=== PATIENT | female | born 1995 | race Caucasian/White ===

== ENCOUNTER 2017-08-30 08:32 | Emergency (ER) | payer BC ==
[2017-08-30] MEDS ORDERED: KETOROLAC TROMETHAMINE INJ/PF 30 MG/1 ML SDV IV ONE (09:25)
[2017-08-30] MEDS ORDERED: FENTANYL CITRATE INJ/PF 100 MCG/2 ML AMPUL IV ONE ×4 (09:25→11:48)
[2017-08-30] MEDS ORDERED: METOCLOPRAMIDE HCL ORAL SOLN 10 MG/10 ML UDCUP PO ONE (09:25)
--- NOTE | 2017-08-30 09:30 | ER Document Report ---
ED Medical Screen (RME) - General Chief Complaint: Abdominal Pain Stated Complaint: ABDOMINAL PAIN Time Seen by Provider: 08/30/17 09:15 Notes: 22 years old female with a history of pancreatitis since February this year, diagnosed with the ERCP. 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 Also had celiac nerve block 2 months ago. Chronically on pain medication presents with increased mid abdominal to upper abdominal pain since this morning. Associated with nausea, vomiting. No diarrhea. No fever chills or other constitutional symptoms Examination= alert seems to be in mild to moderate discomfort. Tender upper abdomen. TRAVEL OUTSIDE OF THE [place] IN LAST 30 DAYS: No - Related Data Allergies/Adverse Reactions: metronidazole [From Flagyl] Adverse Reaction (Verified 08/30/17 08:33) Physical Exam - Vital signs Vitals: Temp Pulse Resp BP Pulse Ox 98.8 F 90 16 109/69 96 08/30/17 08:36 08/30/17 08:36 08/30/17 08:36 08/30/17 08:36 08/30/17 08:36 Course - Vital Signs Vital signs: Temp Pulse Resp BP Pulse Ox 98.8 F 90 16 109/69 96 08/30/17 08:36 08/30/17 08:36 08/30/17 08:36 08/30/17 08:36 08/30/17 08:36
[2017-08-30] MEDS ORDERED: NORMAL SALINE 1000 ML 1,000 ML IV ONE (09:31)
--- NOTE | 2017-08-30 09:54 | ER Document Report ---
ED GI/ - General Chief Complaint: Abdominal Pain Stated Complaint: ABDOMINAL PAIN Time Seen by Provider: 08/30/17 09:15 Information source: Patient Notes: Patient is a 22-year-old female with past medical history including some chronic pancreatitis diagnosed by ERCP in February of this past year found to have pancreatic divisum with a stent placed as well as a celiac nerve block. Patient presents with some increased epigastric pain. She denies any fevers. Patient has had some nausea and nonbloody vomiting. Patient does not have a gallbladder. She denies any radiation, aggravating or relieving factors. She denies any dysuria, missed menstrual periods, or flank pain. TRAVEL OUTSIDE OF THE [place] IN LAST 30 DAYS: No - HPI Patient complains to provider of: Abdominal pain Onset: Other - See above Timing/Duration: Gradual Quality of pain: Achy Severity at maximum: Moderate Severity in ED: Moderate Pain Level: 3 Location: Epigastric Vaginal bleeding (Compared to normal period): None Menstrual period history: denies: Missed Associated symptoms: Other - See above Exacerbated by: Denies Relieved by: Denies Similar symptoms previously: No Recently seen / treated by doctor: No - Related Data Allergies/Adverse Reactions: metronidazole [From Flagyl] Adverse Reaction (Verified 08/30/17 08:33) Past Medical History - General Information source: Patient - Social History Smoking Status: Unknown if Ever Smoked Cigarette use (# per day): No Chew tobacco use (# tins/day): No Smoking Education Provided: No Frequency of alcohol use: None Family History: Reviewed & Not Pertinent Review of Systems - Review of Systems Constitutional: denies: Fever EENT: denies: Eye discharge, Nose discharge Cardiovascular: denies: Chest pain Respiratory: denies: Short of breath Gastrointestinal: Vomiting. denies: Diarrhea Genitourinary: denies: Dysuria Musculoskeletal: denies: Leg swelling Skin: Other - no hives. denies: Rash Neurological/Psychological: Other - no slurred speech -: Yes All other systems reviewed and negative Physical Exam - Vital signs Vitals: Temp Pulse Resp BP Pulse Ox 98.8 F 90 16 109/69 96 08/30/17 08:36 08/30/17 08:36 08/30/17 08:36 08/30/17 08:36 08/30/17 08:36 Notes: Reviewed vital signs and nursing note as charted by RN. CONSTITUTIONAL: Alert and oriented and responds appropriately to questions. Well -appearing; well-nourished HEAD: Normocephalic; atraumatic EYES: Sclerae non-icteric CARD: Regular rate and rhythm; no murmurs RESP: Normal chest excursion without splinting or tachypnea; breath sounds clear and equal bilaterally; no wheezes, no rhonchi, no rales ABD/GI: Normal bowel sounds; non-distended; soft, ttp of the epigastric region without rebound or guarding. No right upper quadrant Ocampo sign. No lower abdominal tenderness BACK: The back appears normal and is non-tender to palpation, there is no CVA tenderness EXT: Normal ROM in all joints; non-tender to palpation; no cyanosis, no effusions, no edema SKIN: No acute lesions noted NEURO: Moves all extremities equally; Motor and sensory function intact PSYCH: The patient's mood and manner are appropriate. Grooming and personal hygiene are appropriate. Course - Re-evaluation Re-evalutation: 08/30/17 09:56 Given the above history and physical examination we will obtain basic labs, liver panel, lipase, three-way x-ray of the abdomen, and reassess. I would like to make sure that the patient does not have any increase in the lipase level, significant elevation of a white blood cell count, or any obvious bowel obstruction. 08/30/17 10:05 Patient's basket braider is in [place] as they are here on vacation. It is Dr. Gibran Stevens at [phone]. 08/30/17 10:42 Labs as recorded. Normal lipase level. I will call Dr. Stevens. 08/30/17 10:53 I called and spoke to Dr. Stevens's internet marketing assistant. She states that the stent should have fallen out by now. She states that the patient has had follow-up imaging and procedures and if left in place it would have been removed. She states that all the vital signs and labs are reassuring. She will attempt to have the doctor call me back directly. She states normally in the circumstances they just make the patient n.p.o. and provide fluids and pain management. 08/30/17 11:49 Patient does state that her pain is improved. I have offered IV hydration, pain control and admission. Patient states that she would like to see if she is able to go home. She states she already has fentanyl patches and oxycodone at home. She does not feel nauseous at this time. She is asked for a few more dosages of pain medications as well as fluids. Mom is at bedside and agrees with this plan. 08/30/17 13:19 Patient states she is feeling better. She would like to go home. Repeat examination is improved. Mom is very comfortable with this plan. Patient will be discharged home with strict return precautions and some nausea medications. X-ray three-way of the abdomen shows no acute abnormalities. - Vital Signs Vital signs: Temp Pulse Resp BP Pulse Ox 98.8 F 90 17 109/69 100 08/30/17 08:36 08/30/17 08:36 08/30/17 13:00 08/30/17 08:36 08/30/17 13:00 - Laboratory Result Diagrams: 08/30/17 09:57 08/30/17 09:57 Laboratory results interpreted by me: 08/30/17 08/30/17 08/30/17 09:30 09:57 09:57 RDW 14.7 H Sodium 145.1 H Alkaline Phosphatase 127 H Ammonia Ur Leukocyte Esterase TRACE H 08/30/17 10:26 RDW Sodium Alkaline Phosphatase Ammonia < 8.7 L Ur Leukocyte Esterase Discharge - Discharge Clinical Impression: Epigastric abdominal pain Condition: Good Disposition: HOME, SELF-CARE Additional Instructions: Come back immediately with any increased pain, change in location or quality of pain, fevers or vomiting, or any other acute problems. Please make sure that you follow-up expeditiously with your basket braider and primary care physician when you return home. Prescriptions: Ondansetron [Zofran Odt 4 mg Tablet] 1 tab PO Q6H #15 tab.[email or web address]
[2017-08-30 10:11] LABS: APPEARANCE,URINE SLIGHTLY-CLOUDY; BILIRUBIN,URINE NEGATIVE (NEGATIVE); COLOR,URINE YELLOW; GLUCOSE, URINE NEGATIVE (NEGATIVE); KETONES,URINE NEGATIVE (NEGATIVE); LEUKOCYTE ESTERASE,URINE TRACE (NEGATIVE); NITRITE,URINE NEGATIVE (NEGATIVE); PROTEIN,URINE NEGATIVE (NEGATIVE); UROBILINOGEN,URINE NEGATIVE mg/dL (<2.0)
[2017-08-30 10:13] LABS: ABSOLUTE EOSINOPHILS # (AUTO) 0.1 10^3/uL (0.0-0.6); ABSOLUTE LYMPHOCYTES (AUTO) 2.8 10^3/uL (0.5-4.7); ABSOLUTE MONOCYTES (AUTO) 0.6 10^3/uL (0.1-1.4); ABSOLUTE NEUT (AUTO) 4.2 10^3/uL (1.7-8.2); BASOPHILS % (AUTO) 0.3 % (0-2); EOSINOPHILS % (AUTO) 1.1 % (0-6); HEMATOCRIT 44.3 % (36.0-47.0); HEMOGLOBIN 15.2 g/dL (12.0-15.5); LYMPHOCYTES % (AUTO) 36.8 % (13-45); MEAN CORPUSCULAR HEMOGLOBIN 29.8 pg (27.0-33.4); MEAN CORPUSCULAR HGB CONC 34.4 g/dL (32.0-36.0); MEAN CORPUSCULAR VOLUME 87 fl (80-97); MONOCYTES % (AUTO) 7.9 % (3-13); PLATELET COUNT 208 10^3/uL (150-450); RED BLOOD COUNT 5.12 10^6/uL (3.72-5.28); RED CELL DISTRIBUTION WIDTH 14.7 % (11.5-14.0); SEGMENTED NEUTROPHILS % (AUTO) 53.9 % (42-78); TOTAL CELLS COUNTED % (AUTO) 100 %; WHITE BLOOD COUNT 7.7 10^3/uL (4.0-10.5)
[2017-08-30] MEDS: NORMAL SALINE 1000 ML 1,000 ML IV PRN ×2 (10:15→11:00)
[2017-08-30 10:26] LABS: ALANINE AMINOTRANSFERASE 45 U/L (9-52); ALBUMIN 4.1 g/dL (3.5-5.0); ALKALINE PHOSPHATASE 127 U/L (38-126); ANION GAP 14 (5-19); ASPARTATE AMINO TRANSFERASE 31 U/L (14-36); BILIRUBIN,DIRECT 0.3 mg/dL (0.0-0.4); BILIRUBIN,TOTAL 0.6 mg/dL (0.2-1.3); BLOOD UREA NITROGEN 14 mg/dL (7-20); CALCIUM 9.6 mg/dL (8.4-10.2); CARBON DIOXIDE 25 mmol/L (22-30); CHLORIDE 106 mmol/L (98-107); GLUCOSE 84 mg/dL (75-110); LIPASE 115.1 U/L (23-300); POTASSIUM 4.2 mmol/L (3.6-5.0); SODIUM 145.1 mmol/L (137-145); TOTAL PROTEIN 7.1 g/dL (6.3-8.2)
[2017-08-30] MEDS ORDERED: MORPHINE SULFATE 10 MG/ML INJ IV ONE (10:52)
--- NOTE | 2017-08-30 11:14 | RADIOLOGY REPORT (SQ) ---
EXAM DESCRIPTION: KUB/ABDOMEN (SINGLE VIEW) COMPLETED DATE/TIME: 08/30/2017 11:06 am REASON FOR STUDY: Abdominal pain COMPARISON: None. NUMBER OF VIEWS: Two views. TECHNIQUE: Supine and erect/decubitus radiographic images of the abdomen acquired. LIMITATIONS: None. FINDINGS: FREE AIR: None. No abnormal gas collections. LUNG BASES: Clear. BOWEL GAS PATTERN: Nonobstructive pattern. No dilated loops or air fluid levels. CALCIFICATIONS: No suspicious calcifications. SOFT TISSUES: No gross mass or suggestion of organomegaly. HARDWARE: Cholecystectomy clips are present. BONES: No acute fracture. No worrisome bone lesions. OTHER: No other significant finding. IMPRESSION: NO RADIOGRAPHIC EVIDENCE FOR ACUTE ABDOMINAL DISEASE. TECHNICAL DOCUMENTATION: JOB ID: [id number] [employer]- All Rights Reserved Reading location - IP/workstation name: [email or web address]
[2017-08-30 13:59] VITALS: BP 105/61
== END 2017-08-30 13:59 | disposition home or self-care (01) ==
LOC: ER 08:32
DX: R10.13 Epigastric pain (principal); R11.2 Nausea with vomiting, unspecified; Q45.3 Other congenital malformations of pancreas and pancreatic duct; Z90.49 Acquired absence of other specified parts of digestive tract
CPT/HCPCS: 96376; 99284; 96361; 96374; 96375; 36415; 82140; 83690; 85025; 81025; 80076; 80048; 81001; 74018; J3010; J1885; J2270; J7030